=== PATIENT | male | born 1950 | race Caucasian/White ===

== ENCOUNTER → 2020-03-19 | Outpatient (CLI) | payer MEDICARE ==
--- NOTE | 2020-03-19 15:05 | Diagnostic Imaging Report ---
CT Lung Screening INDICATION: Screening for lung cancer, 40 pack year history of smoking, quit smoking 5 years prior. TECHNIQUE: Noncontrast, low-dose CT imaging performed according to the lung cancer screening protocol. Auto Exposure Controls were utilize during the CT exam to meet ALARA standards for radiation dose reduction. COMPARISON: None available FINDINGS: No pathologically enlarged lymph nodes within the chest. Scattered vascular calcifications, particularly within the coronary arteries. No aneurysmal dilatation of the thoracic aorta. The heart is within normal limits in size. No pericardial effusion. No pleural effusion. No pneumothorax. Moderate background centrilobular and paraseptal emphysematous changes are present, greatest within the upper lobes. Biapical pleural parenchymal scarring. Irregular 2.0 x 0.8 x 0.4 cm solid and sub-solid pulmonary nodule is noted within the right upper lobe, axial image 26. The solid component measures at least 1 cm. 0.9 x 0.6 x 0.7 cm mildly irregular sub-solid left upper lobe pulmonary nodule is also present, axial image 24. The trachea is patent. The minimally visualized upper abdomen is unremarkable. No acute osseous abnormality with scattered osseous degenerative changes. IMPRESSION: 2.0 x 0.8 x 0.4 cm solid and sub-solid right upper lobe pulmonary nodule. This is indeterminate, though favored to relate to malignancy versus scar. Recommend PET/CT versus CT-guided biopsy for further evaluation. Additional 0.7 cm sub-solid left upper lobe pulmonary nodule for which a follow-up CT of the chest is recommended in 6 months. Moderate background emphysematous changes, with an upper lobe predilection. LUNG-RADS CATEGORY:4B, very suspicious MODIFIER: S: Moderate background emphysematous changes with an upper lobe predilection. Follow-up: PET/CT versus CT guided biopsy for the right upper lung irregular pulmonary nodule as above. Follow-up low-dose CT of the chest is recommended in 6 months to monitor stability of the left upper lobe sub-solid pulmonary nodule, as described. Report given and faxed to nurse Memo) at 3:04 p.m. 03/19/2020/cb Dictated by: Dictated on workstation # [id number]
== END ==
LOC: RAD 13:06
PROVIDERS: ATTEND Nurse Practitioner
DX: J43.9 Emphysema, unspecified (principal); F17.210 Nicotine dependence, cigarettes, uncomplicated; R89.9 Unspecified abnormal finding in specimens from other organs, systems and tissues